=== PATIENT | female | born 1955 | race Caucasian/White ===

== ENCOUNTER 2017-07-19 20:50 | Emergency (ER) | payer OTHER ==
[~2017-07-19 20:50] MED LIST: ADVIL200 MG; ATROVENT I0.5 MG/2.5 INH; CLARITIN-D 24 H1 T24 PO; MEDROL DOSEPAK4 MG PO; MOTRIN 600 MG E4 TAB PO; MULTIVITAMIN FO1 CAP PO; NKHM; TAGAMET400 MG PO; TYLENOL500 MG; VENTOLIN 02.5 MG/3 M INH; VISTARIL25 M1 PO; ZITHROMAX Z PA250 MG PO
[2017-07-19] MEDS ORDERED: METFORMIN500 MG PO (20:57)
[2017-07-19 20:58] VITALS: BP 160/88
[2017-07-19] MEDS ORDERED: NAPROSYN500 MG PO (23:02)
[2017-07-20] MEDS ORDERED: CYCLOBENZAPRINE10 MG PO ×2 (13:00→17:14)
[2017-07-20] MEDS ORDERED: NAPROSYN500 MG PO ×2 (13:00→17:14)
== END 2017-07-19 23:27 | disposition home or self-care (01) ==
LOC: ED 20:50
DX: M25.461 Effusion, right knee (principal); M25.512 Pain in left shoulder; F17.200 Nicotine dependence, unspecified, uncomplicated; Z90.710 Acquired absence of both cervix and uterus; Z90.49 Acquired absence of other specified parts of digestive tract; Z98.890 Other specified postprocedural states; Z79.899 Other long term (current) drug therapy; Z88.0 Allergy status to penicillin; Z88.1 Allergy status to other antibiotic agents; W17.89XA Other fall from one level to another, initial encounter; Y93.89 Activity, other specified; Y92.89 Other specified places as the place of occurrence of the external cause; Y99.9 Unspecified external cause status

== ENCOUNTER 2017-07-20 12:42 | Emergency (ER) | payer OTHER ==
[~2017-07-20] VITALS: Ht 162.5 cm; Wt 99.8 kg
[~2017-07-20 12:42] MED LIST changes: +METFORMIN500 MG PO; +NAPROSYN500 MG PO
[2017-07-20] MEDS ORDERED: CYCLOBENZAPRINE10 MG PO ×2 (13:00→17:14)
[2017-07-20] MEDS ORDERED: NAPROSYN500 MG PO ×2 (13:00→17:14)
[2017-07-20 13:57] VITALS: BP 162/86
== END 2017-07-20 14:30 | disposition home or self-care (01) ==
LOC: ED 12:42
DX: M25.562 Pain in left knee (principal); M54.5 Low back pain; Z88.0 Allergy status to penicillin; Z88.1 Allergy status to other antibiotic agents; Z79.84 Long term (current) use of oral hypoglycemic drugs; Z79.899 Other long term (current) drug therapy; Z90.49 Acquired absence of other specified parts of digestive tract; Z90.710 Acquired absence of both cervix and uterus

== ENCOUNTER → 2017-10-22 | Outpatient (CLI) | payer OTHER ==
[~2017-10-22] MED LIST changes: +CYCLOBENZAPRINE10 MG PO
== END | disposition home or self-care (01) ==
LOC: RAD 15:02
DX: M16.11 Unilateral primary osteoarthritis, right hip (principal); R10.9 Unspecified abdominal pain; Z91.81 History of falling

== ENCOUNTER 2020-10-06 10:07 | Inpatient (IN) | payer OTHER ==
[~2020-10-06] VITALS: Ht 162.6 cm; Wt 89.8 kg
[~2020-10-06 10:07] MED LIST changes: +GLUCOPHAGE500 M1 PO; -METFORMIN500 MG PO
[2020-10-06 10:10] VITALS: BP 113/63
[2020-10-06] MEDS ORDERED: LISINOPRIL40 MG PO (10:28)
[2020-10-06] MEDS ORDERED: LIPITOR10 MG PO (10:29)
[2020-10-06] MEDS ORDERED: ASPIRIN ADULT L81 M1 PO (10:29)
[2020-10-06 10:36] LABS: BASO % 0.2 % (0.0-1.0); EOS % 0.4 % (1.0-4.0); HEMATOCRIT 44.8 % (37.0-47.0); LYMPH # 1.1 10*3/uL (1.3-4.4); LYMPH % 19.9 % (27.0-41.0); MEAN CELL VOLUME 88.4 fl (81.0-99.0); MEAN CORPUSCULAR HGB 29.4 pg (27.0-31.0); MEAN CORPUSCULAR HGB CONC 33.3 g/dl (33.0-37.0); MEAN PLATELET VOLUME 8.4 fl (9.6-12.3); MONO # 0.4 10*3/uL (0.1-1.0); MONO % 7.2 % (3.0-9.0); NEUT # 4.1 10*3/uL (2.3-7.9); NEUT % 72.1 % (47.0-73.0); PLATELET COUNT AUTOMATED 193 10*3/uL (130-400); RED BLOOD COUNT 5.07 10*6/uL (4.10-5.10); RED CELL DISTRI WIDTH 12.4 % (0-14.5); WHITE BLOOD COUNT 5.7 10*3/uL (4.8-10.8)
[2020-10-06 10:47] LABS: ACT PARTIAL THROMBO TIME 32.8 SECONDS (20.0-32.1)
[2020-10-06 10:54] LABS: ALBUMIN 3.1 gm/dl (3.1-4.5); ALKALINE PHOSPHATASE 142 U/L (45-117); BUN 8 mg/dl (7-24); CHLORIDE 99 mmol/L (98-107); CREATININE 0.44 mg/dL (0.55-1.02); LIPASE 77 U/L (73-393); POTASSIUM 3.3 mmol/L (3.5-5.1); SGOT/AST 10 IU/L (3-35); SGPT/ALT 16 U/L (12-78); SODIUM 134 mmol/L (136-145); TOTAL PROTEIN 7.2 gm/dL (6.4-8.2)
[2020-10-06 10:57] LABS: TROPONIN I < 0.015 ng/ml (<0.045)
[2020-10-06] MEDS ORDERED: TRINTELLIX10 MG PO (14:56)
[2020-10-06] MEDS ORDERED: BUSPAR5 MG PO (14:57)
[2020-10-06] MEDS ORDERED: LEADER NATUR1000 MCG PO (14:58)
[2020-10-06 15:12] VITALS: BP 105/67
[2020-10-06 16:00] VITALS: BP 123/79
[2020-10-06 20:00] VITALS: BP 105/69
[2020-10-07] VITALS: BP 106/64
[2020-10-07 04:00] VITALS: BP 112/54
[2020-10-07 05:33] LABS: ALBUMIN 2.9 gm/dl (3.1-4.5); ALKALINE PHOSPHATASE 125 U/L (45-117); BUN 17 mg/dl (7-24); CHLORIDE 101 mmol/L (98-107); CHOLESTEROL 93 mg/dL (<200); CPK 84 U/L (26-192); CREATININE 0.51 mg/dL (0.55-1.02); LDH 136 U/L (84-246); POTASSIUM 3.4 mmol/L (3.5-5.1); SGOT/AST 12 IU/L (3-35); SGPT/ALT 15 U/L (12-78); SODIUM 135 mmol/L (136-145); TOTAL PROTEIN 6.4 gm/dL (6.4-8.2); TRIGLYCERIDES 66 mg/dl (<150)
[2020-10-07 05:34] LABS: LDL CHOLESTEROL 55 mg/dL (9-159)
[2020-10-07 06:16] LABS: BASO % 0.3 % (0.0-1.0); EOS # 0.1 10*3/uL (0.0-0.4); EOS % 2.1 % (1.0-4.0); HEMATOCRIT 42.9 % (37.0-47.0); LYMPH # 1.5 10*3/uL (1.3-4.4); LYMPH % 24.1 % (27.0-41.0); MEAN CORPUSCULAR HGB 29.6 pg (27.0-31.0); MEAN CORPUSCULAR HGB CONC 32.4 g/dl (33.0-37.0); MEAN PLATELET VOLUME 9.1 fl (9.6-12.3); MONO # 0.5 10*3/uL (0.1-1.0); MONO % 7.8 % (3.0-9.0); NEUT % 65.2 % (47.0-73.0); PLATELET COUNT AUTOMATED 178 10*3/uL (130-400); RED BLOOD COUNT 4.69 10*6/uL (4.10-5.10); RED CELL DISTRI WIDTH 12.6 % (0-14.5); WHITE BLOOD COUNT 6.1 10*3/uL (4.8-10.8)
[2020-10-07 06:17] LABS: MEAN CELL VOLUME 91.5 fl (81.0-99.0)
[2020-10-07 07:39] LABS: FERRITIN 69.7 ng/mL (10.0-291.0); VITAMIN D, 25-HYDROXY 63.9 ng/mL (30-100)
[2020-10-07 08:00] VITALS: BP 101/56
[2020-10-07 08:32] LABS: ABG BASE EXCESS 0.6 mmol/L (-2.0-2.0); ARTERIAL BLOOD GAS PH 7.353 (7.35-7.45); ARTERIAL BLOOD GAS PO2 67.7 (80-90)
[2020-10-07 11:20] VITALS: BP 111/70
[2020-10-07 13:25] LABS: ABG BASE EXCESS 3.1 mmol/L (-2.0-2.0); ARTERIAL BLOOD GAS PH 7.346 (7.35-7.45); ARTERIAL BLOOD GAS PO2 77.5 (80-90)
[2020-10-07 16:00] VITALS: BP 101/66
[2020-10-07 16:44] LABS: ABG BASE EXCESS 0.7 mmol/L (-2.0-2.0); ARTERIAL BLOOD GAS PH 7.359 (7.35-7.45); ARTERIAL BLOOD GAS PO2 62.4 (80-90)
[2020-10-07 20:00] VITALS: BP 119/84
[2020-10-08] VITALS: BP 127/83
[2020-10-08 05:59] LABS: HEMATOCRIT 41.2 % (37.0-47.0); MEAN CELL VOLUME 93.6 fl (81.0-99.0); MEAN CORPUSCULAR HGB 29.3 pg (27.0-31.0); MEAN CORPUSCULAR HGB CONC 31.3 g/dl (33.0-37.0); PLATELET COUNT AUTOMATED 180 10*3/uL (130-400); RED CELL DISTRI WIDTH 12.5 % (0-14.5); WHITE BLOOD COUNT 6.8 10*3/uL (4.8-10.8)
[2020-10-08 06:10] LABS: ALBUMIN 2.5 gm/dl (3.1-4.5); ALKALINE PHOSPHATASE 119 U/L (45-117); BUN 17 mg/dl (7-24); CHLORIDE 104 mmol/L (98-107); CREATININE 0.61 mg/dL (0.55-1.02); LDH 144 U/L (84-246); SGOT/AST 11 IU/L (3-35); SGPT/ALT 14 U/L (12-78); SODIUM 137 mmol/L (136-145)
[2020-10-08 06:11] LABS: CPK 40 U/L (26-192)
[2020-10-08 06:48] LABS: PLATELET SUFFICIENCY NORMAL (NORMAL); TOTAL CELLS COUNTED 100 #CELLS
[2020-10-08 07:42] LABS: ABG BASE EXCESS 1.9 mmol/L (-2.0-2.0); ARTERIAL BLOOD GAS PH 7.36 (7.35-7.45); ARTERIAL BLOOD GAS PO2 69.2 (80-90)
[2020-10-08 08:00] VITALS: BP 120/60
[2020-10-08 12:00] VITALS: BP 115/66
[2020-10-08 16:00] VITALS: BP 137/79
[2020-10-08 20:00] VITALS: BP 130/74
[2020-10-09] VITALS: BP 136/78
[2020-10-09 05:51] LABS: ALBUMIN 2.8 gm/dl (3.1-4.5); ALKALINE PHOSPHATASE 119 U/L (45-117); BUN 15 mg/dl (7-24); CHLORIDE 104 mmol/L (98-107); CREATININE 0.43 mg/dL (0.55-1.02); LDH 136 U/L (84-246); POTASSIUM 4.6 mmol/L (3.5-5.1); SGOT/AST 9 IU/L (3-35); SGPT/ALT 15 U/L (12-78); SODIUM 140 mmol/L (136-145); TOTAL PROTEIN 6.3 gm/dL (6.4-8.2)
[2020-10-09 06:04] LABS: CPK 26 U/L (26-192)
[2020-10-09 06:21] LABS: BASO % 0.3 % (0.0-1.0); EOS % 0.2 % (1.0-4.0); HEMATOCRIT 41.7 % (37.0-47.0); LYMPH # 1.6 10*3/uL (1.3-4.4); LYMPH % 24.7 % (27.0-41.0); MEAN CELL VOLUME 94.6 fl (81.0-99.0); MEAN CORPUSCULAR HGB 29.3 pg (27.0-31.0); MEAN CORPUSCULAR HGB CONC 30.9 g/dl (33.0-37.0); MEAN PLATELET VOLUME 8.7 fl (9.6-12.3); MONO # 0.6 10*3/uL (0.1-1.0); MONO % 9.1 % (3.0-9.0); NEUT # 4.1 10*3/uL (2.3-7.9); NEUT % 65.4 % (47.0-73.0); PLATELET COUNT AUTOMATED 174 10*3/uL (130-400); RED BLOOD COUNT 4.41 10*6/uL (4.10-5.10); RED CELL DISTRI WIDTH 12.7 % (0-14.5); WHITE BLOOD COUNT 6.3 10*3/uL (4.8-10.8)
[2020-10-09 07:04] LABS: ARTERIAL BLOOD GAS PH 7.376 (7.35-7.45); ARTERIAL BLOOD GAS PO2 75.5 (80-90)
[2020-10-09 08:00] VITALS: BP 154/100
[2020-10-09 12:00] VITALS: BP 140/74
[2020-10-09 16:00] VITALS: BP 125/90
[2020-10-09 20:00] VITALS: BP 153/78
[2020-10-10] VITALS: BP 148/72
[2020-10-10 06:50] LABS: BASO % 0.3 % (0.0-1.0); EOS % 0.3 % (1.0-4.0); HEMATOCRIT 42.9 % (37.0-47.0); LYMPH # 1.7 10*3/uL (1.3-4.4); LYMPH % 26.6 % (27.0-41.0); MEAN CORPUSCULAR HGB 29.2 pg (27.0-31.0); MEAN CORPUSCULAR HGB CONC 32.2 g/dl (33.0-37.0); MEAN PLATELET VOLUME 8.9 fl (9.6-12.3); MONO # 0.4 10*3/uL (0.1-1.0); MONO % 6.7 % (3.0-9.0); NEUT # 4.1 10*3/uL (2.3-7.9); NEUT % 65.1 % (47.0-73.0); PLATELET COUNT AUTOMATED 216 10*3/uL (130-400); RED BLOOD COUNT 4.72 10*6/uL (4.10-5.10); RED CELL DISTRI WIDTH 12.4 % (0-14.5); WHITE BLOOD COUNT 6.3 10*3/uL (4.8-10.8)
[2020-10-10 06:53] LABS: MEAN CELL VOLUME 90.9 fl (81.0-99.0)
[2020-10-10 07:01] LABS: ALBUMIN 2.9 gm/dl (3.1-4.5); BUN 10 mg/dl (7-24); CHLORIDE 102 mmol/L (98-107); CREATININE 0.38 mg/dL (0.55-1.02); POTASSIUM 3.8 mmol/L (3.5-5.1); SGOT/AST 10 IU/L (3-35); SGPT/ALT 18 U/L (12-78); SODIUM 138 mmol/L (136-145); TOTAL PROTEIN 6.8 gm/dL (6.4-8.2)
[2020-10-10 07:04] LABS: ALKALINE PHOSPHATASE 139 U/L (45-117); CPK 30 U/L (26-192); LDH 175 U/L (84-246)
[2020-10-10 08:00] VITALS: BP 159/92
[2020-10-10 08:10] LABS: ABG BASE EXCESS 4.8 mmol/L (-2.0-2.0); ARTERIAL BLOOD GAS PH 7.386 (7.35-7.45); ARTERIAL BLOOD GAS PO2 86.3 (80-90)
[2020-10-10 12:00] VITALS: BP 145/89
[2020-10-10 16:00] VITALS: BP 183/96
[2020-10-10 20:00] VITALS: BP 165/101
[2020-10-11] VITALS: BP 137/82
[2020-10-11 06:16] LABS: BASO % 0.2 % (0.0-1.0); EOS % 0.4 % (1.0-4.0); HEMATOCRIT 40.1 % (37.0-47.0); LYMPH # 1.4 10*3/uL (1.3-4.4); LYMPH % 24.6 % (27.0-41.0); MEAN CELL VOLUME 90.5 fl (81.0-99.0); MEAN CORPUSCULAR HGB 29.3 pg (27.0-31.0); MEAN CORPUSCULAR HGB CONC 32.4 g/dl (33.0-37.0); MONO # 0.5 10*3/uL (0.1-1.0); MONO % 9.4 % (3.0-9.0); NEUT # 3.6 10*3/uL (2.3-7.9); NEUT % 64.3 % (47.0-73.0); PLATELET COUNT AUTOMATED 218 10*3/uL (130-400); RED BLOOD COUNT 4.43 10*6/uL (4.10-5.10); RED CELL DISTRI WIDTH 12.2 % (0-14.5); WHITE BLOOD COUNT 5.5 10*3/uL (4.8-10.8)
[2020-10-11 06:25] LABS: ALBUMIN 2.8 gm/dl (3.1-4.5); ALKALINE PHOSPHATASE 123 U/L (45-117); BUN 14 mg/dl (7-24); CHLORIDE 99 mmol/L (98-107); CPK 21 U/L (26-192); CREATININE 0.46 mg/dL (0.55-1.02); LDH 137 U/L (84-246); SGOT/AST 7 IU/L (3-35); SGPT/ALT 17 U/L (12-78); SODIUM 137 mmol/L (136-145)
[2020-10-11 06:26] LABS: TOTAL PROTEIN 6.2 gm/dL (6.4-8.2)
[2020-10-11 07:59] LABS: ARTERIAL BLOOD GAS PH 7.412 (7.35-7.45); ARTERIAL BLOOD GAS PO2 76.5 (80-90)
[2020-10-11 08:00] VITALS: BP 140/92
[2020-10-11] MEDS ORDERED: DECADRON6 M1 PO (11:31)
[2020-10-11 12:00] VITALS: BP 131/86
[2020-10-11] MEDS ORDERED: ATIVAN0.5 MG PO ×2 (13:08)
== END 2020-10-11 13:45 | disposition home or self-care (01) | DRG 720 ==
LOC: ED 10:07 → EDHOLD 14:06 → 4E 14:06 → ICCU 15:15 → 4E 10-08 22:06
PROVIDERS: Emergency Medicine; Family Medicine; Internal Medicine; Internal Medicine Critical Care Medicine; ADMIT Internal Medicine; ATTEND Internal Medicine
PROC: 5A09357 Assistance with Respiratory Ventilation, Less than 24 Consecutive Hours, Continuous Positive Airway Pressure (ICD-10-PCS; principal; 2020-10-07)
PROC: 5A0935A Assistance with Respiratory Ventilation, Less than 24 Consecutive Hours, High Flow/Velocity Cannula (ICD-10-PCS; 2020-10-07)
PROC: 5A09357 Assistance with Respiratory Ventilation, Less than 24 Consecutive Hours, Continuous Positive Airway Pressure (ICD-10-PCS; 2020-10-08)
PROC: 5A0935A Assistance with Respiratory Ventilation, Less than 24 Consecutive Hours, High Flow/Velocity Cannula (ICD-10-PCS; 2020-10-08)
PROC: 5A09357 Assistance with Respiratory Ventilation, Less than 24 Consecutive Hours, Continuous Positive Airway Pressure (ICD-10-PCS; 2020-10-09)
PROC: 5A0935A Assistance with Respiratory Ventilation, Less than 24 Consecutive Hours, High Flow/Velocity Cannula (ICD-10-PCS; 2020-10-09)
PROC: 5A09357 Assistance with Respiratory Ventilation, Less than 24 Consecutive Hours, Continuous Positive Airway Pressure (ICD-10-PCS; 2020-10-10)
PROC: 5A0935A Assistance with Respiratory Ventilation, Less than 24 Consecutive Hours, High Flow/Velocity Cannula (ICD-10-PCS; 2020-10-10)
PROC: 5A09357 Assistance with Respiratory Ventilation, Less than 24 Consecutive Hours, Continuous Positive Airway Pressure (ICD-10-PCS; 2020-10-11)
DX: A41.89 Other specified sepsis (principal); U07.1 COVID-19; J12.82 Pneumonia due to coronavirus disease 2019; E87.1 Hypo-osmolality and hyponatremia; J96.21 Acute and chronic respiratory failure with hypoxia; E87.6 Hypokalemia; E66.9 Obesity, unspecified; F17.210 Nicotine dependence, cigarettes, uncomplicated; E11.65 Type 2 diabetes mellitus with hyperglycemia; I10 Essential (primary) hypertension; J96.22 Acute and chronic respiratory failure with hypercapnia; J98.6 Disorders of diaphragm; Z68.34 Body mass index [BMI] 34.0-34.9, adult; Z88.1 Allergy status to other antibiotic agents; Z88.0 Allergy status to penicillin; Z88.8 Allergy status to other drugs, medicaments and biological substances; Z79.899 Other long term (current) drug therapy; Z90.49 Acquired absence of other specified parts of digestive tract; Z79.82 Long term (current) use of aspirin; Z79.84 Long term (current) use of oral hypoglycemic drugs; Z71.6 Tobacco abuse counseling

== ENCOUNTER 2020-10-14 16:10 | Inpatient (IN) | payer OTHER ==
[~2020-10-14] VITALS: Ht 162.5 cm; Wt 94.1 kg
[~2020-10-14 16:10] MED LIST changes: +ASPIRIN ADULT L81 M1 PO; +ATIVAN0.5 MG PO; +BUSPAR5 MG PO; +DECADRON6 M1 PO; +LEADER NATUR1000 MCG PO; +LIPITOR10 MG PO; +LISINOPRIL40 MG PO; +TRINTELLIX10 MG PO
[2020-10-14 16:16] VITALS: BP 121/76
[2020-10-14 16:40] LABS: BASO # 0.1 10*3/uL (0.0-0.1); BASO % 0.4 % (0.0-1.0); EOS # 0.3 10*3/uL (0.0-0.4); EOS % 2.2 % (1.0-4.0); HEMATOCRIT 45.6 % (37.0-47.0); LYMPH # 2.9 10*3/uL (1.3-4.4); MEAN CELL VOLUME 90.1 fl (81.0-99.0); MEAN CORPUSCULAR HGB 28.9 pg (27.0-31.0); MEAN PLATELET VOLUME 8.3 fl (9.6-12.3); MONO # 0.9 10*3/uL (0.1-1.0); MONO % 5.9 % (3.0-9.0); NEUT # 10.4 10*3/uL (2.3-7.9); NEUT % 70.7 % (47.0-73.0); PLATELET COUNT AUTOMATED 350 10*3/uL (130-400); RED BLOOD COUNT 5.06 10*6/uL (4.10-5.10); RED CELL DISTRI WIDTH 12.4 % (0-14.5); WHITE BLOOD COUNT 14.7 10*3/uL (4.8-10.8)
[2020-10-14 17:06] LABS: BUN 14 mg/dl (7-24); CHLORIDE 101 mmol/L (98-107); CREATININE 0.49 mg/dL (0.55-1.02); POTASSIUM 3.7 mmol/L (3.5-5.1); SODIUM 138 mmol/L (136-145)
[2020-10-14 17:07] LABS: TROPONIN I < 0.015 ng/ml (<0.045)
[2020-10-14 18:18] VITALS: BP 131/79
[2020-10-14 19:45] VITALS: BP 112/78
[2020-10-15] VITALS: BP 127/95
[2020-10-15 05:44] LABS: BUN 11 mg/dl (7-24); CHLORIDE 102 mmol/L (98-107); CREATININE 0.54 mg/dL (0.55-1.02); POTASSIUM 4.4 mmol/L (3.5-5.1); SODIUM 137 mmol/L (136-145)
[2020-10-15 06:13] LABS: BASO % 0.3 % (0.0-1.0); EOS % 0.3 % (1.0-4.0); HEMATOCRIT 42.4 % (37.0-47.0); LYMPH # 1.2 10*3/uL (1.3-4.4); MEAN CELL VOLUME 91.8 fl (81.0-99.0); MEAN CORPUSCULAR HGB CONC 31.6 g/dl (33.0-37.0); MEAN PLATELET VOLUME 8.8 fl (9.6-12.3); MONO # 0.1 10*3/uL (0.1-1.0); MONO % 1.1 % (3.0-9.0); NEUT % 83.9 % (47.0-73.0); PLATELET COUNT AUTOMATED 331 10*3/uL (130-400); RED BLOOD COUNT 4.62 10*6/uL (4.10-5.10); RED CELL DISTRI WIDTH 12.4 % (0-14.5); WHITE BLOOD COUNT 9.5 10*3/uL (4.8-10.8)
[2020-10-15 08:00] VITALS: BP 120/71
[2020-10-15 11:40] VITALS: BP 120/78
[2020-10-15 16:00] VITALS: BP 140/79
[2020-10-15 20:00] VITALS: BP 157/91
[2020-10-16] VITALS (7 sets, daily range): BP systolic 115–152; BP diastolic 54–96
[2020-10-16 06:11] LABS: BUN 10 mg/dl (7-24); CHLORIDE 102 mmol/L (98-107); CREATININE 0.48 mg/dL (0.55-1.02); POTASSIUM 4.2 mmol/L (3.5-5.1); SODIUM 137 mmol/L (136-145)
[2020-10-16 06:15] LABS: BASO % 0.1 % (0.0-1.0); EOS % 0.1 % (1.0-4.0); HEMATOCRIT 40.6 % (37.0-47.0); LYMPH # 2.1 10*3/uL (1.3-4.4); LYMPH % 15.4 % (27.0-41.0); MEAN CELL VOLUME 92.7 fl (81.0-99.0); MEAN CORPUSCULAR HGB 28.8 pg (27.0-31.0); MEAN PLATELET VOLUME 8.7 fl (9.6-12.3); MONO # 0.7 10*3/uL (0.1-1.0); MONO % 5.4 % (3.0-9.0); NEUT # 10.6 10*3/uL (2.3-7.9); NEUT % 77.9 % (47.0-73.0); PLATELET COUNT AUTOMATED 332 10*3/uL (130-400); RED BLOOD COUNT 4.38 10*6/uL (4.10-5.10); RED CELL DISTRI WIDTH 12.4 % (0-14.5); WHITE BLOOD COUNT 13.6 10*3/uL (4.8-10.8)
[2020-10-17 08:00] VITALS: BP 144/117
[2020-10-17 12:00] VITALS: BP 138/91
[2020-10-17 16:00] VITALS: BP 149/100
[2020-10-17 20:00] VITALS: BP 159/79
[2020-10-18] VITALS: BP 130/83
[2020-10-18 08:00] VITALS: BP 140/87
[2020-10-18] MEDS ORDERED: MUCUS RELIEF600 MG PO (10:44)
[2020-10-18] MEDS ORDERED: DECADRON4 MG PO (10:44)
== END 2020-10-18 11:30 | disposition home or self-care (01) | DRG 720 ==
LOC: ED 16:10 → EDHOLD 17:48 → 4E 17:48
PROVIDERS: Emergency Medicine; Student in an Organized Health Care Education/Training Program; ADMIT Student in an Organized Health Care Education/Training Program; ATTEND Student in an Organized Health Care Education/Training Program
PROC: 5A09357 Assistance with Respiratory Ventilation, Less than 24 Consecutive Hours, Continuous Positive Airway Pressure (ICD-10-PCS; principal; 2020-10-15)
PROC: 5A09357 Assistance with Respiratory Ventilation, Less than 24 Consecutive Hours, Continuous Positive Airway Pressure (ICD-10-PCS; 2020-10-16)
PROC: 5A09357 Assistance with Respiratory Ventilation, Less than 24 Consecutive Hours, Continuous Positive Airway Pressure (ICD-10-PCS; 2020-10-17)
PROC: 5A09357 Assistance with Respiratory Ventilation, Less than 24 Consecutive Hours, Continuous Positive Airway Pressure (ICD-10-PCS; 2020-10-18)
DX: A41.89 Other specified sepsis (principal); J96.21 Acute and chronic respiratory failure with hypoxia; J96.22 Acute and chronic respiratory failure with hypercapnia; J98.6 Disorders of diaphragm; U07.1 COVID-19; J18.0 Bronchopneumonia, unspecified organism; J12.82 Pneumonia due to coronavirus disease 2019; J45.901 Unspecified asthma with (acute) exacerbation; E66.9 Obesity, unspecified; I10 Essential (primary) hypertension; F17.210 Nicotine dependence, cigarettes, uncomplicated; Z71.6 Tobacco abuse counseling; J98.11 Atelectasis; F43.23 Adjustment disorder with mixed anxiety and depressed mood; Z88.0 Allergy status to penicillin; Z88.1 Allergy status to other antibiotic agents; Z88.8 Allergy status to other drugs, medicaments and biological substances; Z79.899 Other long term (current) drug therapy; Z68.35 Body mass index [BMI] 35.0-35.9, adult

== ENCOUNTER 2020-11-01 18:17 | Inpatient (IN) | payer OTHER ==
[~2020-11-01] VITALS: Ht 162.5 cm; Wt 104.3 kg
[~2020-11-01 18:17] MED LIST changes: +DECADRON4 MG PO; +MUCUS RELIEF600 MG PO
[2020-11-01 18:50] VITALS: BP 130/79
[2020-11-01 18:56] LABS: BASO % 0.3 % (0.0-1.0); EOS # 0.5 10*3/uL (0.0-0.4); EOS % 6.1 % (1.0-4.0); HEMATOCRIT 35.5 % (37.0-47.0); LYMPH # 1.1 10*3/uL (1.3-4.4); LYMPH % 13.4 % (27.0-41.0); MEAN CELL VOLUME 92.2 fl (81.0-99.0); MEAN CORPUSCULAR HGB 28.8 pg (27.0-31.0); MEAN CORPUSCULAR HGB CONC 31.3 g/dl (33.0-37.0); MEAN PLATELET VOLUME 8.7 fl (9.6-12.3); MONO # 0.5 10*3/uL (0.1-1.0); MONO % 5.8 % (3.0-9.0); NEUT # 5.9 10*3/uL (2.3-7.9); NEUT % 74.1 % (47.0-73.0); PLATELET COUNT AUTOMATED 351 10*3/uL (130-400); RED BLOOD COUNT 3.85 10*6/uL (4.10-5.10); RED CELL DISTRI WIDTH 12.4 % (0-14.5); WHITE BLOOD COUNT 7.9 10*3/uL (4.8-10.8)
[2020-11-01] MEDS ORDERED: B12 ACTIVE1000 MCG PO (19:04)
[2020-11-01 19:13] LABS: ALBUMIN 2.1 gm/dl (3.1-4.5); ALKALINE PHOSPHATASE 100 U/L (45-117); BUN 11 mg/dl (7-24); CHLORIDE 101 mmol/L (98-107); CREATININE 0.28 mg/dL (0.55-1.02); POTASSIUM 3.4 mmol/L (3.5-5.1); SGOT/AST 6 IU/L (3-35); SGPT/ALT 17 U/L (12-78); SODIUM 138 mmol/L (136-145); TOTAL PROTEIN 6.2 gm/dL (6.4-8.2)
[2020-11-01 19:15] LABS: TROPONIN I < 0.015 ng/ml (<0.045)
[2020-11-01 21:27] VITALS: BP 146/81
[2020-11-02] VITALS (49 sets, daily range): BP systolic 66–152; BP diastolic 36–85
[2020-11-02 06:29] LABS: BASO % 0.4 % (0.0-1.0); EOS # 0.4 10*3/uL (0.0-0.4); EOS % 5.3 % (1.0-4.0); HEMATOCRIT 34.8 % (37.0-47.0); LYMPH # 1.2 10*3/uL (1.3-4.4); LYMPH % 15.7 % (27.0-41.0); MEAN CORPUSCULAR HGB 28.9 pg (27.0-31.0); MEAN PLATELET VOLUME 8.8 fl (9.6-12.3); MONO # 0.4 10*3/uL (0.1-1.0); NEUT # 5.5 10*3/uL (2.3-7.9); NEUT % 73.2 % (47.0-73.0); PLATELET COUNT AUTOMATED 381 10*3/uL (130-400); RED BLOOD COUNT 3.74 10*6/uL (4.10-5.10); RED CELL DISTRI WIDTH 12.4 % (0-14.5); WHITE BLOOD COUNT 7.6 10*3/uL (4.8-10.8)
[2020-11-02 06:42] LABS: ACT PARTIAL THROMBO TIME 31.1 SECONDS (20.0-32.1)
[2020-11-02 07:15] LABS: BUN 10 mg/dl (7-24); CHLORIDE 99 mmol/L (98-107); CREATININE 0.38 mg/dL (0.55-1.02); POTASSIUM 3.5 mmol/L (3.5-5.1); SGOT/AST 5 IU/L (3-35); SGPT/ALT 15 U/L (12-78); SODIUM 135 mmol/L (136-145)
[2020-11-02 07:16] LABS: ALKALINE PHOSPHATASE 99 U/L (45-117); TOTAL PROTEIN 6.1 gm/dL (6.4-8.2)
[2020-11-02 12:41] LABS: ABG BASE EXCESS -8.7 mmol/L (-2.0-2.0); ARTERIAL BLOOD GAS PH 6.95 (7.35-7.45)
[2020-11-02 13:03] LABS: HEMATOCRIT 37.1 % (37.0-47.0); MEAN CORPUSCULAR HGB CONC 29.6 g/dl (33.0-37.0); MEAN PLATELET VOLUME 8.9 fl (9.6-12.3); PLATELET COUNT AUTOMATED 474 10*3/uL (130-400); RED BLOOD COUNT 3.79 10*6/uL (4.10-5.10); RED CELL DISTRI WIDTH 12.5 % (0-14.5); WHITE BLOOD COUNT 11.4 10*3/uL (4.8-10.8)
[2020-11-02 13:05] LABS: MEAN CELL VOLUME 97.9 fl (81.0-99.0)
[2020-11-02 13:16] LABS: ALKALINE PHOSPHATASE 114 U/L (45-117); BUN 8 mg/dl (7-24); CHLORIDE 102 mmol/L (98-107); CREATININE 0.64 mg/dL (0.55-1.02); SGOT/AST 20 IU/L (3-35); SGPT/ALT 22 U/L (12-78); SODIUM 138 mmol/L (136-145); TOTAL PROTEIN 6.1 gm/dL (6.4-8.2)
[2020-11-02 13:18] LABS: ATYPICAL LYMPHS 1 % (0-0); PLATELET SUFFICIENCY HIGH (NORMAL); POLYCHROMASIA SLIGHT; TOTAL CELLS COUNTED 100 #CELLS
[2020-11-02 13:19] LABS: BURR CELLS FEW; SCHISTOCYTES FEW
[2020-11-02 13:46] LABS: ABG BASE EXCESS 1.4 mmol/L (-2.0-2.0); ARTERIAL BLOOD GAS PH 7.289 (7.35-7.45); ARTERIAL BLOOD GAS PO2 129.5 (80-90)
[2020-11-02 14:49] LABS: BUN 9 mg/dl (7-24); CHLORIDE 103 mmol/L (98-107); CREATININE 0.46 mg/dL (0.55-1.02); POTASSIUM 3.7 mmol/L (3.5-5.1); SODIUM 139 mmol/L (136-145)
[2020-11-02 15:26] LABS: TROPONIN I 0.083 ng/ml (<0.045)
[2020-11-02 16:38] LABS: ABG BASE EXCESS 4.8 mmol/L (-2.0-2.0); ARTERIAL BLOOD GAS PH 7.395 (7.35-7.45); ARTERIAL BLOOD GAS PO2 62.1 (80-90)
[2020-11-02 16:40] LABS: HEMATOCRIT 34.7 % (37.0-47.0); MEAN CORPUSCULAR HGB 28.4 pg (27.0-31.0); MEAN CORPUSCULAR HGB CONC 30.5 g/dl (33.0-37.0); MEAN PLATELET VOLUME 8.8 fl (9.6-12.3); PLATELET COUNT AUTOMATED 399 10*3/uL (130-400); RED BLOOD COUNT 3.73 10*6/uL (4.10-5.10); RED CELL DISTRI WIDTH 12.7 % (0-14.5); WHITE BLOOD COUNT 12.6 10*3/uL (4.8-10.8)
[2020-11-02 17:02] LABS: ATYPICAL LYMPHS 1 % (0-0); PLATELET SUFFICIENCY NORMAL (NORMAL); TOTAL CELLS COUNTED 100 #CELLS
[2020-11-02 21:11] LABS: ABG BASE EXCESS 5.4 mmol/L (-2.0-2.0); ARTERIAL BLOOD GAS PH 7.37 (7.35-7.45); ARTERIAL BLOOD GAS PO2 97.9 (80-90)
[2020-11-03] VITALS (29 sets, daily range): BP systolic 98–132; BP diastolic 59–80
[2020-11-03 05:22] LABS: ALBUMIN 1.9 gm/dl (3.1-4.5); ALKALINE PHOSPHATASE 109 U/L (45-117); BUN 12 mg/dl (7-24); CHLORIDE 101 mmol/L (98-107); POTASSIUM 3.6 mmol/L (3.5-5.1); SGOT/AST 17 IU/L (3-35); SGPT/ALT 30 U/L (12-78); SODIUM 138 mmol/L (136-145); TOTAL PROTEIN 5.9 gm/dL (6.4-8.2)
[2020-11-03 05:54] LABS: BASO % 0.2 % (0.0-1.0); EOS % 0.3 % (1.0-4.0); HEMATOCRIT 31.4 % (37.0-47.0); LYMPH # 0.9 10*3/uL (1.3-4.4); LYMPH % 9.3 % (27.0-41.0); MEAN CORPUSCULAR HGB 31.1 pg (27.0-31.0); MEAN CORPUSCULAR HGB CONC 33.1 g/dl (33.0-37.0); MEAN PLATELET VOLUME 8.9 fl (9.6-12.3); MONO # 0.5 10*3/uL (0.1-1.0); MONO % 5.9 % (3.0-9.0); NEUT # 7.7 10*3/uL (2.3-7.9); NEUT % 83.5 % (47.0-73.0); PLATELET COUNT AUTOMATED 427 10*3/uL (130-400); RED BLOOD COUNT 3.34 10*6/uL (4.10-5.10); RED CELL DISTRI WIDTH 12.6 % (0-14.5); WHITE BLOOD COUNT 9.2 10*3/uL (4.8-10.8)
[2020-11-03 08:09] LABS: ABG BASE EXCESS 4.4 mmol/L (-2.0-2.0); ARTERIAL BLOOD GAS PH 7.438 (7.35-7.45); ARTERIAL BLOOD GAS PO2 71.7 (80-90)
[2020-11-03 12:33] LABS: ABG BASE EXCESS 7.1 mmol/L (-2.0-2.0); ARTERIAL BLOOD GAS PH 7.428 (7.35-7.45); ARTERIAL BLOOD GAS PO2 91.2 (80-90)
[2020-11-03 15:25] LABS: ABG BASE EXCESS 8.5 mmol/L (-2.0-2.0); ARTERIAL BLOOD GAS PH 7.434 (7.35-7.45); ARTERIAL BLOOD GAS PO2 98.1 (80-90)
[2020-11-04] VITALS (7 sets, daily range): BP systolic 104–149; BP diastolic 56–74
[2020-11-04 04:41] LABS: BASO % 0.5 % (0.0-1.0); EOS # 0.4 10*3/uL (0.0-0.4); EOS % 5.3 % (1.0-4.0); HEMATOCRIT 31.4 % (37.0-47.0); LYMPH # 1.4 10*3/uL (1.3-4.4); LYMPH % 20.8 % (27.0-41.0); MEAN CELL VOLUME 93.7 fl (81.0-99.0); MEAN CORPUSCULAR HGB 28.4 pg (27.0-31.0); MEAN CORPUSCULAR HGB CONC 30.3 g/dl (33.0-37.0); MEAN PLATELET VOLUME 8.5 fl (9.6-12.3); MONO # 0.6 10*3/uL (0.1-1.0); MONO % 9.3 % (3.0-9.0); NEUT # 4.2 10*3/uL (2.3-7.9); NEUT % 63.5 % (47.0-73.0); PLATELET COUNT AUTOMATED 340 10*3/uL (130-400); RED BLOOD COUNT 3.35 10*6/uL (4.10-5.10); RED CELL DISTRI WIDTH 12.8 % (0-14.5); WHITE BLOOD COUNT 6.7 10*3/uL (4.8-10.8)
[2020-11-04 04:59] LABS: ALBUMIN 1.8 gm/dl (3.1-4.5); ALKALINE PHOSPHATASE 91 U/L (45-117); BUN 12 mg/dl (7-24); CHLORIDE 101 mmol/L (98-107); CREATININE 0.36 mg/dL (0.55-1.02); POTASSIUM 3.6 mmol/L (3.5-5.1); SGOT/AST 12 IU/L (3-35); SGPT/ALT 25 U/L (12-78); SODIUM 140 mmol/L (136-145); TOTAL PROTEIN 5.3 gm/dL (6.4-8.2); TRIGLYCERIDES 98 mg/dl (<150)
[2020-11-04 07:58] LABS: ABG BASE EXCESS 7.3 mmol/L (-2.0-2.0); ARTERIAL BLOOD GAS PH 7.423 (7.35-7.45); ARTERIAL BLOOD GAS PO2 73.3 (80-90)
[2020-11-05] VITALS: BP 103/86
[2020-11-05 06:10] LABS: BASO % 0.5 % (0.0-1.0); EOS # 0.4 10*3/uL (0.0-0.4); EOS % 6.8 % (1.0-4.0); HEMATOCRIT 33.6 % (37.0-47.0); LYMPH # 1.5 10*3/uL (1.3-4.4); LYMPH % 22.4 % (27.0-41.0); MEAN CELL VOLUME 93.9 fl (81.0-99.0); MEAN CORPUSCULAR HGB 28.8 pg (27.0-31.0); MEAN CORPUSCULAR HGB CONC 30.7 g/dl (33.0-37.0); MEAN PLATELET VOLUME 8.7 fl (9.6-12.3); MONO # 0.5 10*3/uL (0.1-1.0); MONO % 8.1 % (3.0-9.0); NEUT % 60.8 % (47.0-73.0); PLATELET COUNT AUTOMATED 437 10*3/uL (130-400); RED BLOOD COUNT 3.58 10*6/uL (4.10-5.10); RED CELL DISTRI WIDTH 12.6 % (0-14.5); WHITE BLOOD COUNT 6.5 10*3/uL (4.8-10.8)
[2020-11-05 06:21] LABS: ALBUMIN 2.3 gm/dl (3.1-4.5); BUN 13 mg/dl (7-24); CHLORIDE 99 mmol/L (98-107); CREATININE 0.38 mg/dL (0.55-1.02); POTASSIUM 3.4 mmol/L (3.5-5.1); SGOT/AST 10 IU/L (3-35); SGPT/ALT 22 U/L (12-78); SODIUM 139 mmol/L (136-145)
[2020-11-05 06:22] LABS: ALKALINE PHOSPHATASE 102 U/L (45-117)
[2020-11-05 08:00] VITALS: BP 135/76
[2020-11-05 12:00] VITALS: BP 153/67
[2020-11-05 16:00] VITALS: BP 155/80
[2020-11-05 20:00] VITALS: BP 156/80
[2020-11-05 23:58] VITALS: BP 134/62
[2020-11-06 06:02] LABS: ALBUMIN 2.1 gm/dl (3.1-4.5); ALKALINE PHOSPHATASE 101 U/L (45-117); BUN 10 mg/dl (7-24); CHLORIDE 103 mmol/L (98-107); CREATININE 0.32 mg/dL (0.55-1.02); POTASSIUM 3.9 mmol/L (3.5-5.1); SGOT/AST 13 IU/L (3-35); SGPT/ALT 24 U/L (12-78); SODIUM 140 mmol/L (136-145); TOTAL PROTEIN 5.8 gm/dL (6.4-8.2)
[2020-11-06 06:18] LABS: BASO % 0.7 % (0.0-1.0); EOS # 0.4 10*3/uL (0.0-0.4); EOS % 6.9 % (1.0-4.0); HEMATOCRIT 33.9 % (37.0-47.0); LYMPH # 1.5 10*3/uL (1.3-4.4); LYMPH % 24.7 % (27.0-41.0); MEAN CELL VOLUME 91.1 fl (81.0-99.0); MEAN CORPUSCULAR HGB 28.8 pg (27.0-31.0); MEAN CORPUSCULAR HGB CONC 31.6 g/dl (33.0-37.0); MEAN PLATELET VOLUME 8.5 fl (9.6-12.3); MONO # 0.4 10*3/uL (0.1-1.0); MONO % 6.9 % (3.0-9.0); NEUT # 3.5 10*3/uL (2.3-7.9); NEUT % 58.9 % (47.0-73.0); PLATELET COUNT AUTOMATED 448 10*3/uL (130-400); RED BLOOD COUNT 3.72 10*6/uL (4.10-5.10); RED CELL DISTRI WIDTH 12.7 % (0-14.5); WHITE BLOOD COUNT 5.9 10*3/uL (4.8-10.8)
[2020-11-06 07:56] LABS: ABG BASE EXCESS 6.4 mmol/L (-2.0-2.0); ARTERIAL BLOOD GAS PH 7.405 (7.35-7.45); ARTERIAL BLOOD GAS PO2 79.5 (80-90)
[2020-11-06 08:00] VITALS: BP 152/81; BP 152/84
[2020-11-06 12:00] VITALS: BP 148/87
[2020-11-06 16:00] VITALS: BP 143/73
[2020-11-06 20:00] VITALS: BP 138/74
[2020-11-07] VITALS: BP 107/63
[2020-11-07 08:15] VITALS: BP 148/78
[2020-11-07 12:00] VITALS: BP 172/76
== END 2020-11-07 15:50 | disposition left against medical advice (07) | DRG 133 ==
LOC: ED 18:17 → EDHOLD 23:03 → 4E 23:03 → ICCU 23:03 → 5E 23:03 → 4E 23:44 → ICCU 11-02 12:29 → 5E 11-04 14:35
PROVIDERS: Emergency Medicine; Family Medicine; Hospitalist; Internal Medicine; Internal Medicine Critical Care Medicine; Student in an Organized Health Care Education/Training Program; ADMIT Student in an Organized Health Care Education/Training Program; ATTEND Student in an Organized Health Care Education/Training Program
PROC: 5A12012 Performance of Cardiac Output, Single, Manual (ICD-10-PCS; principal; 2020-11-02)
PROC: 02HV33Z Insertion of Infusion Device into Superior Vena Cava, Percutaneous Approach (ICD-10-PCS; 2020-11-02)
PROC: B548ZZA Ultrasonography of Superior Vena Cava, Guidance (ICD-10-PCS; 2020-11-02)
PROC: 0BH17EZ Insertion of Endotracheal Airway into Trachea, Via Natural or Artificial Opening (ICD-10-PCS; 2020-11-02)
PROC: 5A1935Z Respiratory Ventilation, Less than 24 Consecutive Hours (ICD-10-PCS; 2020-11-02)
PROC: 5A09357 Assistance with Respiratory Ventilation, Less than 24 Consecutive Hours, Continuous Positive Airway Pressure (ICD-10-PCS; 2020-11-02)
PROC: 5A09357 Assistance with Respiratory Ventilation, Less than 24 Consecutive Hours, Continuous Positive Airway Pressure (ICD-10-PCS; 2020-11-04)
PROC: 5A09357 Assistance with Respiratory Ventilation, Less than 24 Consecutive Hours, Continuous Positive Airway Pressure (ICD-10-PCS; 2020-11-05)
PROC: 5A09357 Assistance with Respiratory Ventilation, Less than 24 Consecutive Hours, Continuous Positive Airway Pressure (ICD-10-PCS; 2020-11-06)
DX: J96.21 Acute and chronic respiratory failure with hypoxia (principal); J44.1 Chronic obstructive pulmonary disease with (acute) exacerbation; L03.311 Cellulitis of abdominal wall; E87.6 Hypokalemia; J96.22 Acute and chronic respiratory failure with hypercapnia; E43 Unspecified severe protein-calorie malnutrition; T78.2XXA Anaphylactic shock, unspecified, initial encounter; E87.2 Acidosis; E66.9 Obesity, unspecified; R79.82 Elevated C-reactive protein (CRP); I46.9 Cardiac arrest, cause unspecified; J98.11 Atelectasis; F17.210 Nicotine dependence, cigarettes, uncomplicated; T38.0X5A Adverse effect of glucocorticoids and synthetic analogues, initial encounter; I11.0 Hypertensive heart disease with heart failure; E11.65 Type 2 diabetes mellitus with hyperglycemia; E78.00 Pure hypercholesterolemia, unspecified; F41.1 Generalized anxiety disorder; Z53.29 Procedure and treatment not carried out because of patient's decision for other reasons; I50.9 Heart failure, unspecified; Y92.238 Other place in hospital as the place of occurrence of the external cause; T82.897A Other specified complication of cardiac prosthetic devices, implants and grafts, initial encounter; Z71.6 Tobacco abuse counseling; I95.9 Hypotension, unspecified; J45.40 Moderate persistent asthma, uncomplicated; T85.628A Displacement of other specified internal prosthetic devices, implants and grafts, initial encounter; Y83.8 Other surgical procedures as the cause of abnormal reaction of the patient, or of later complication, without mention of misadventure at the time of the procedure; R79.89 Other specified abnormal findings of blood chemistry; Z88.0 Allergy status to penicillin; Z88.1 Allergy status to other antibiotic agents; Z88.8 Allergy status to other drugs, medicaments and biological substances; Z90.49 Acquired absence of other specified parts of digestive tract; Z82.3 Family history of stroke; Z82.5 Family history of asthma and other chronic lower respiratory diseases; Z83.3 Family history of diabetes mellitus; Z90.710 Acquired absence of both cervix and uterus; Z86.73 Personal history of transient ischemic attack (TIA), and cerebral infarction without residual deficits; Z85.89 Personal history of malignant neoplasm of other organs and systems; Z79.899 Other long term (current) drug therapy; Z82.49 Family history of ischemic heart disease and other diseases of the circulatory system; Z86.16 Personal history of COVID-19; Z68.36 Body mass index [BMI] 36.0-36.9, adult; Y92.89 Other specified places as the place of occurrence of the external cause; Z20.822 Contact with and (suspected) exposure to COVID-19; J98.6 Disorders of diaphragm

== ENCOUNTER 2020-11-07 18:09 | Inpatient (IN) | payer OTHER ==
[~2020-11-07] VITALS: Ht 162.5 cm; Wt 96.6 kg
[~2020-11-07 18:09] MED LIST changes: +B12 ACTIVE1000 MCG PO
[2020-11-07 18:21] VITALS: BP 156/100
[2020-11-07 23:11] VITALS: BP 160/93
[2020-11-08] VITALS: BP 150/86
[2020-11-08 06:29] LABS: BASO # 0.1 10*3/uL (0.0-0.1); BASO % 0.7 % (0.0-1.0); EOS # 0.4 10*3/uL (0.0-0.4); EOS % 4.9 % (1.0-4.0); HEMATOCRIT 32.2 % (37.0-47.0); LYMPH # 1.8 10*3/uL (1.3-4.4); LYMPH % 21.1 % (27.0-41.0); MEAN CORPUSCULAR HGB 33.9 pg (27.0-31.0); MEAN CORPUSCULAR HGB CONC 35.4 g/dl (33.0-37.0); MEAN PLATELET VOLUME 8.5 fl (9.6-12.3); MONO # 0.6 10*3/uL (0.1-1.0); MONO % 7.5 % (3.0-9.0); NEUT # 5.4 10*3/uL (2.3-7.9); PLATELET COUNT AUTOMATED 498 10*3/uL (130-400); RED BLOOD COUNT 3.36 10*6/uL (4.10-5.10); RED CELL DISTRI WIDTH 13.1 % (0-14.5); WHITE BLOOD COUNT 8.4 10*3/uL (4.8-10.8)
[2020-11-08 06:31] LABS: ALBUMIN 2.7 gm/dl (3.1-4.5); BUN 9 mg/dl (7-24); CHLORIDE 99 mmol/L (98-107); CREATININE 0.47 mg/dL (0.55-1.02); POTASSIUM 3.8 mmol/L (3.5-5.1); SGOT/AST 15 IU/L (3-35); SGPT/ALT 27 U/L (12-78); SODIUM 138 mmol/L (136-145)
[2020-11-08 06:32] LABS: ALKALINE PHOSPHATASE 112 U/L (45-117); MEAN CELL VOLUME 95.8 fl (81.0-99.0); TOTAL PROTEIN 6.4 gm/dL (6.4-8.2)
[2020-11-08 08:00] VITALS: BP 133/99
[2020-11-08 12:00] VITALS: BP 135/95
[2020-11-08 16:00] VITALS: BP 148/88
[2020-11-08 18:00] LABS: ABG BASE EXCESS 6.4 mmol/L (-2.0-2.0); ARTERIAL BLOOD GAS PH 7.432 (7.35-7.45); ARTERIAL BLOOD GAS PO2 72.1 (80-90)
[2020-11-08 20:00] VITALS: BP 153/94
[2020-11-09] VITALS: BP 152/86
[2020-11-09 08:00] VITALS: BP 133/77
[2020-11-09 12:00] VITALS: BP 132/57
[2020-11-09] MEDS ORDERED: ATIVAN0.5 MG PO (12:49)
[2020-11-09] MEDS ORDERED: HYDROCODONE-AC1 EAC1 PO (12:49)
[2020-11-09] MEDS ORDERED: FLUVOXAMINE50 MG PO (12:49)
[2020-11-09] MEDS ORDERED: DOXYCYCLINE MO100 M1 PO (12:49)
== END 2020-11-09 13:00 | disposition home health service (06) | DRG 140 ==
LOC: ED 18:09 → 5E 19:20 → EDHOLD 19:20 → 5E 23:14
PROVIDERS: Hospitalist; Internal Medicine Critical Care Medicine; ADMIT Internal Medicine; ATTEND Internal Medicine
DX: J44.1 Chronic obstructive pulmonary disease with (acute) exacerbation (principal); J96.21 Acute and chronic respiratory failure with hypoxia; E43 Unspecified severe protein-calorie malnutrition; M94.0 Chondrocostal junction syndrome [Tietze]; E11.65 Type 2 diabetes mellitus with hyperglycemia; F43.23 Adjustment disorder with mixed anxiety and depressed mood; D64.9 Anemia, unspecified; J96.22 Acute and chronic respiratory failure with hypercapnia; I10 Essential (primary) hypertension; E66.9 Obesity, unspecified; J98.6 Disorders of diaphragm; E83.39 Other disorders of phosphorus metabolism; F42.9 Obsessive-compulsive disorder, unspecified; Y83.8 Other surgical procedures as the cause of abnormal reaction of the patient, or of later complication, without mention of misadventure at the time of the procedure; F17.210 Nicotine dependence, cigarettes, uncomplicated; Z71.6 Tobacco abuse counseling; Z88.8 Allergy status to other drugs, medicaments and biological substances; Z88.0 Allergy status to penicillin; Z90.49 Acquired absence of other specified parts of digestive tract; Z88.1 Allergy status to other antibiotic agents; Z90.710 Acquired absence of both cervix and uterus; Z82.3 Family history of stroke; Z83.3 Family history of diabetes mellitus; Z82.5 Family history of asthma and other chronic lower respiratory diseases; Z86.16 Personal history of COVID-19; Z86.73 Personal history of transient ischemic attack (TIA), and cerebral infarction without residual deficits; Z79.899 Other long term (current) drug therapy; Z79.82 Long term (current) use of aspirin; T85.898D Other specified complication of other internal prosthetic devices, implants and grafts, subsequent encounter; Z68.36 Body mass index [BMI] 36.0-36.9, adult